=== PATIENT | female | born 1975 | race Caucasian/White ===

== ENCOUNTER 2017-07-07 17:53 | Emergency (ER) | payer BC ==
--- NOTE | 2017-07-07 18:28 | EDM.PDOC ---
ED HPI GENERAL MEDICAL PROBLEM - General Chief Complaint: Headache Stated Complaint: FELL TUES HIT HEAD HEADACHES Time Seen by Provider: 07/07/17 18:27 Source of Information: Reports: Patient History Limitations: Reports: No Limitations - History of Present Illness INITIAL COMMENTS - FREE TEXT/NARRATIVE: Lazara presents to the ER [facility] with complaints of frontal headache status post fall 4 days ago. She states she fell forward striking the left side of her face and temporal area on the corner of a wall when she tripped over her cat. She denies LOC after fall. She does report intermittent nausea without vomiting. She states she has been taking ibuprofen 600mg PO as needed for headache without relief. Last ibuprofen at 1450 today. She denies fever, chills, change in hearing, vision or mental status. Headache Pain Score (Numeric/FACES): 3 - Related Data Allergies Allergy/AdvReac Type Severity Reaction Status Date / Time morphine Allergy Itching Verified 07/07/17 18:18 codeine AdvReac Vomiting Verified 07/07/17 18:18 fentanyl AdvReac Nausea and Verified 07/07/17 18:18 Vomiting bandaids Allergy Severe Itching Uncoded 07/07/17 18:18 chlorahexidine Allergy Severe Itching Uncoded 07/07/17 18:18 Home Meds: Home Meds Calcium Citrate 1,000 gm PO DAILY 04/17/14 [History] Multivitamin with Minerals [Multiple Vitamin] 1 tab PO DAILY 04/17/14 [History] Cetirizine HCl [Zyrtec] 10 mg PO ASDIRECTED PRN 08/11/14 [History] Cholecalciferol (Vitamin D3) [Vitamin D3] 1,000 unit PO DAILY 08/11/14 [History] FLUoxetine HCl [Prozac] 10 mg PO DAILY 01/06/16 [History] Past Medical History HEENT History: Reports: Impaired Vision Cardiovascular History: Reports: Other (See Below) Other Cardiovascular History: RFA and sclerotherapy Respiratory History: Reports: PE CLINICAL RADIOLOGIST History: Reports: Other OB/BYN History: vaginal polyp Musculoskeletal History: Reports: Back Pain, Chronic Psychiatric History: Reports: Anxiety Endocrine/Metabolic History: Reports: Obesity/BMI 30+ Hematologic History: Reports: Iron Deficiency - Infectious Disease History Infectious Disease History: Reports: Chicken Pox - Past Surgical History GI Surgical History: Reports: Bariatric Procedure, EGD Social & Family History - Family History Family Medical History: Noncontributory - Tobacco Use Smoking Status *Q: Never Smoker Second Hand Smoke Exposure: No - Caffeine Use Caffeine Use: Reports: Coffee - Alcohol Use Days Per Week of Alcohol Use: 7 Number of Drinks Per Day: 1 Total Drinks Per Week: 7 - Recreational Drug Use Recreational Drug Use: No ED ROS GENERAL - Review of Systems Review Of Systems: See Below Constitutional: Denies: Fever, Chills, Weakness HEENT: Denies: Ear Discharge, Ear Pain, Eye Pain, Hearing Loss, Nosebleed, Throat Pain, Vertigo, Vision Change Respiratory: Denies: Shortness of Breath, Wheezing, Cough, Sputum, Hemoptysis Cardiovascular: Denies: Chest Pain, Dyspnea on Exertion, Edema, Lightheadedness , Palpitations, PND, Syncope Endocrine: Reports: No Symptoms GI/Abdominal: Reports: Nausea. Denies: Abdominal Pain, Black Stool, Bloody Stool, Constipation, Diarrhea, Vomiting : Reports: No Symptoms Musculoskeletal: Reports: Other (She denies neck pain. ). Denies: Back Pain, Joint Pain, Joint Swelling, Muscle Pain, Muscle Stiffness Skin: Reports: Bruising, Wound, Other (Left eyebrow, healing laceration with ecchymosis. ) Neurological: Reports: Dizziness, Headache. Denies: Confusion, Numbness, Paresthesia, Seizure, Syncope, Tingling, Trouble Speaking, Difficulty Walking, Weakness, Change in Speech, Gait Disturbance Psychiatric: Reports: No Symptoms Hematologic/Lymphatic: Reports: No Symptoms Immunologic: Reports: No Symptoms ED EXAM, HEAD INJURY - Physical Exam Exam: See Below Text/Narrative:: Lazara is an alert, oriented and pleasant 41 year old female presenting today for continuous headache status post fall 4 days ago in which she struck her right face and head. She denies LOC, vomiting after fall. She reports nausea and dizziness at times after fall. Exam Limited By: No Limitations General Appearance: Alert, WD/WN, Mild Distress Head: Normocephalic, Facial Abrasions, Facial Lacerations, Facial Tenderness, Other (Tenderness to let eyebrow extending to above left ear. ). No: Scalp Lacerations, Scalp Swelling, Scalp Abrasions, Scalp Ecchymosis, Scalp Tenderness , Active Bleeding, Willams's Sign, Facial Swelling, Sinus Tenderness, Raccoon Eyes Nexus Criteria: No: Posterior, Midline Cervical Tenderness, Altered Level of Consciousness, Focal Neurological Deficit, Painful Distraction Injuries Eyes: Bilateral Eye: EOMI, Normal Fundi, Normal Inspection, PERRL Ears: Normal External Exam, Normal Canal, Hearing Grossly Normal, Normal TMs Nose: Normal Inspection, Normal Mucousa, No Blood. No: Nasal Deformity, Nasal Swelling, Nasal Tenderness, Nasal Ecchymosis Throat/Mouth: Normal Inspection, Normal Lips, Normal Teeth, Normal Gums, Normal Oropharynx, Normal Voice, No Airway Compromise. No: Dental Tenderness, Dental Trauma, Lip Swelling, Uvular Deviation, Uvular Edema Neck: Non-Tender, Full Range of Motion, Normal Alignment, Normal Inspection. No : Muscle Spasm, Paraspinous Muscle Tender, Spinous Processes Tender Respiratory: No Respiratory Distress, Lungs Clear, Normal Breath Sounds, No Accessory Muscle Use, Chest Non-Tender Cardiovascular: Normal Peripheral Pulses, Regular Rate, Rhythm, No Edema, No Murmur, No Rub GI/Abdominal Exam: Normal Bowel Sounds, Soft, Non-Tender, No Organomegaly, No Distention, No Mass Back Exam: Normal Inspection, Full Range of Motion. No: CVA Tenderness (R), CVA Tenderness (L) Extremities: Normal Inspection, Normal Range of Motion, Non-Tender, No Pedal Edema, Normal Capillary Refill Neurologic: flat surfacer II-XII nml As Tested, No Motor/Sensory Deficits, Alert, Normal Mood/Affect, Oriented x 3 DTR: 2+: Patella (R), Patella (L), Achilles (R), Achilles (L) Skin: Warm/Dry, Ecchymosis, Other (Ecchymosis with 3cm laceration to left eyebrow - closed with no edema noted. ) - Compton Coma Score Best Eye Response (Compton): (4) Open Spontaneously Best Verbal Response (S[place]hal): (5) Oriented Best Motor Response ([place]): (6) Obeys Commands Snehal Total: 15 Course - Vital Signs Last Recorded V/S: Last Vital Signs Temp 36.9 C 07/07/17 18:15 Pulse 100 07/07/17 18:15 Resp 16 07/07/17 18:15 BP 145/94 H 07/07/17 18:15 Pulse Ox 99 07/07/17 18:15 - Orders/Labs/Meds Orders: Active Orders 24 hr Category Date Time Status Head wo Cont [CT] Stat Exams 07/07/17 18:39 Taken Meds: Medications Discontinued Medications Generic Name Dose Route Start Last Admin Trade Name Joo PRN Reason Stop Dose Admin Hydrocodone Bitart/Acetaminophen 1 tab 07/07/17 18:39 07/07/17 19:03 [place] 325-5 Mg PO 07/07/17 18:40 1 tab ONETIME ONE Administration Ketorolac Tromethamine 60 mg 07/07/17 19:51 Toradol IM 07/07/17 19:52 ONETIME ONE - Radiology Interpretation CT Results Date: 07/07/17 (Head CT negative with no acute intracranial process. ) - Re-Assessments/Exams Free Text/Narrative Re-Assessment/Exam: 07/07/17 19:[address] results. All her questions answered, she is in agreement with plan. We will give her toradol 60mg IM and discharge to home. Departure - Departure Time of Disposition: 19:53 Disposition: Home, Self-Care 01 Condition: Good Clinical Impression: Headache, Mild concussion - Discharge Information Referrals: Carolee Schmitt PA [Primary Care Provider] - Forms: ED Department Discharge Additional Instructions: You were treated for injury to your head as a result of a fall and mild concussion with headache. Your head CT was negative. You were given hydrocodone pain pill and toradol IM for pain. Take ibuprofen 800mg by mouth with food three times a day for pain. You can also take hydrocodone 5/325mg, one tablet three times a day as needed for uncontrolled pain. Follow up with your primary provider this week for a recheck. Sometimes use of a chiropractor can also assist with pain after a fall like the one you had. Return for worsening, issues or concerns. - My Orders Last 24 Hours: My Active Orders 07/07/17 18:39 Head wo Cont [CT] Stat - Assessment/Plan Last 24 Hours: My Active Orders 07/07/17 18:39 Head wo Cont [CT] Stat Assessment:: Headache Mild concussion Plan: Patient treated for injury to your head as a result of a fall and mild concussion with headache. Her head CT was negative. She was given hydrocodone pain pill and toradol IM for pain. Take ibuprofen 800mg by mouth with food three times a day for pain. She can also take hydrocodone 5/325mg, one tablet three times a day as needed for uncontrolled pain. Follow up with primary provider this week for a recheck. Sometimes use of a chiropractor can also assist with pain after a fall like the one she had. Return for worsening, issues or concerns.
[2017-07-07] MEDS ORDERED: Acetaminophen/HYDROcodone 325-5 MG Tab PO ONE (18:39)
[2017-07-07] MEDS ORDERED: Ketorolac 60 MG/2 ML SDV IM ONE (19:51)
[2017-07-07 19:59] VITALS: BP 135/86
== END 2017-07-07 20:08 | disposition home or self-care (01) ==
LOC: JP.ED 17:53
DX: S06.0X9A Concussion with loss of consciousness of unspecified duration, initial encounter (principal); S01.81XA Laceration without foreign body of other part of head, initial encounter; F41.9 Anxiety disorder, unspecified; Z79.899 Other long term (current) drug therapy; Z88.5 Allergy status to narcotic agent; Z88.8 Allergy status to other drugs, medicaments and biological substances; Z91.048 Other nonmedicinal substance allergy status; W01.198A Fall on same level from slipping, tripping and stumbling with subsequent striking against other object, initial encounter
CPT/HCPCS: 70450; 96372; 99284; A9270; J1885

== ENCOUNTER 2022-07-05 13:14 | Emergency (ER) | payer BC ==
[2022-07-05 14:19] VITALS: BP 149/96; PULSE 99
[2022-07-05 14:26] LABS: ESTIMATED GFR 91 mL/min (>60)
== END 2022-07-05 16:04 | disposition home or self-care (01) ==
LOC: JP.ED 13:14
DX: R53.1 Weakness (principal); F41.9 Anxiety disorder, unspecified; E66.9 Obesity, unspecified; Z68.33 Body mass index [BMI] 33.0-33.9, adult; Z86.16 Personal history of COVID-19; Z88.5 Allergy status to narcotic agent; Z91.048 Other nonmedicinal substance allergy status; Z88.8 Allergy status to other drugs, medicaments and biological substances; Z20.822 Contact with and (suspected) exposure to COVID-19
CPT/HCPCS: 36415; 80053; 82550; 84443; 85025; 85379; 99283; U0002

== ENCOUNTER 2022-11-23 08:24 | Emergency (ER) | payer BC ==
[2022-11-23 08:55] VITALS: BP 130/79
[2022-11-23] MEDS ORDERED: LORazepam 2 MG/ML SDV IVPUSH ONE (09:10)
[2022-11-23] MEDS ORDERED: HYDROmorphone 0.5 MG/0.5 ML Syringe IVPUSH ONE (09:11)
[2022-11-23] MEDS ORDERED: Iopamidol 612 MG/ML 100 ML Bottle IV ONE (09:20)
[2022-11-23] MEDS ORDERED: Sodium Chloride 0.9% 10 ML Syringe FLUSH ONE (09:20)
[2022-11-23] MEDS ORDERED: Sodium Chloride 0.9% 50 ML IV ONE (09:20)
[2022-11-23] MEDS: Sodium Chloride 0.9% 10 ML Syringe FLUSH PRN ×3 (09:23→10:14)
[2022-11-23 10:18] VITALS: PULSE 73
== END 2022-11-23 11:41 | disposition home or self-care (01) ==
LOC: JP.ED 08:24
DX: S32.029A Unspecified fracture of second lumbar vertebra, initial encounter for closed fracture (principal); S32.039A Unspecified fracture of third lumbar vertebra, initial encounter for closed fracture; S32.049A Unspecified fracture of fourth lumbar vertebra, initial encounter for closed fracture; E66.9 Obesity, unspecified; Z68.34 Body mass index [BMI] 34.0-34.9, adult; Z88.5 Allergy status to narcotic agent; Z88.8 Allergy status to other drugs, medicaments and biological substances; Z91.048 Other nonmedicinal substance allergy status; W10.9XXA Fall (on) (from) unspecified stairs and steps, initial encounter
CPT/HCPCS: 74177; 96374; 96375; 99283; J1170; J1790; J2060; J3490; Q9967

== ENCOUNTER 2023-10-03 17:49 | Emergency (ER) | payer BC ==
[2023-10-03] MEDS ORDERED: oxyCODONE 5 MG Tab PO ONE (19:59)
[2023-10-03 20:07] LABS: BASOPHILS ABSOLUTE AUTO 0.03 K/uL (0.00-0.10); BASOPHILS PERCENT AUTO 0.4 % (0.1-1.3); EOSINOPHILS ABSOLUTE AUTO 0.05 K/uL (0.00-0.40); EOSINOPHILS PERCENT AUTO 0.7 % (0.0-5.4); HEMATOCRIT 39.8 % (34.3-46.0); HEMOGLOBIN 13.5 g/dL (11.2-15.5); IMMATURE GRAN PERCENT AUTO 0.3 % (0.0-0.7); LYMPHOCYTES ABSOLUTE AUTO 1.45 K/uL (0.8-3.3); LYMPHOCYTES PERCENT AUTO 20.7 % (11.4-47.7); MEAN CORPUSCULAR HEMOGLOBIN 32.1 pg (31.6-35.5); MEAN CORPUSCULAR HGB CONC 33.9 g/dL (31.6-35.5); MEAN CORPUSCULAR VOLUME 94.8 fL (81.4-99.0); MONOCYTES ABSOLUTE AUTO 0.53 K/uL (0.20-0.90); MONOCYTES PERCENT AUTO 7.5 % (3.3-12.6); NEUTROPHILS ABSOLUTE AUTO 4.94 K/uL (1.0-7.6); NEUTROPHILS PERCENT AUTO 70.4 % (40.0-78.1); PLATELET COUNT,PLT 255 K/uL (130-375)
[2023-10-03 20:08] LABS: IMMATURE GRAN ABSOLUTE AUTO 0.02 K/uL (0.00-0.23)
[2023-10-03 22:46] VITALS: BP 108/71; PULSE 58
== END 2023-10-03 23:10 | disposition home or self-care (01) ==
LOC: JP.ED 17:49
DX: M25.561 Pain in right knee (principal); E66.9 Obesity, unspecified; Z88.5 Allergy status to narcotic agent; Z88.8 Allergy status to other drugs, medicaments and biological substances; Z86.16 Personal history of COVID-19; Z68.34 Body mass index [BMI] 34.0-34.9, adult
CPT/HCPCS: 36415; 73562-26-RT; 73562-RT; 85025; 85379; 93971-RT; 99283; 99284; A9270-GY